=== PATIENT | male | born 1980 | race Caucasian/White ===

== ENCOUNTER 2016-11-11 23:56 | Emergency (ER) | payer SELFPAY ==
[~2016-11-11] VITALS: Ht 167.6 cm; Wt 68.8 kg
[~2016-11-11 23:56] MED LIST: PERM5CRE5 TOP
[2016-11-12 00:08] VITALS: TEMP 36.5; Ht 167.6 cm; Wt 68.8 kg
[2016-11-12] MEDS ORDERED: SODIUM CHLORIDE 0.9% 1000ML 1,000 ML IV STA (00:31)
--- NOTE | 2016-11-12 00:47 | EMERGENCY ROOM VISIT NOTE ---
History Report prepared by Kalyn: Markus Benitez Under the Supervision of: Dr. Ben Saucedo M.D. First contact with patient: 00:26 Chief Complaint: FACIAL PAIN/INJURY Stated Complaint: SWOLLEN GUMS ALL AROUND MOUTH UP TO LT EAR History of Present Illness The patient is a 36 year old male who presents to the Emergency Room with complaints of worsening left face pain for the past 3 days. The patient states that he has been having swelling, and the pain has been radiating to his tongue , ear, and throat. The patient states that he has a tooth with a hole in it, and this is where the pain is centralized. The patient denies any fevers, kidney problems, drug use, or leg swelling. The patient states that he has taken ibuprofen. Source of History: patient Onset: three days ago Position: other (left face) Quality: other (swelling) Timing: worsening Associated Symptoms: No fevers Review of Systems See HPI for pertinent positives & negatives. A total of 10 systems reviewed and were otherwise negative. Past Medical & Surgical Medical Problems: (1) Abdominal pain (2) Abdominal pain (3) Abdominal pain (4) Constipation (5) Elevated LFTs (6) Elevated LFTs (7) Gilbert syndrome Family History Patient reports no known family medical history. Social History Smoking Status: Never Smoker Alcohol Use: none Marital Status: in relationship Housing Status: lives with significant other Occupation Status: employed Current/Historical Medications Scheduled Amoxicillin & Pot Clavulanate (Augmentin 875-125 mg), 875 MG PO BID Allergies Coded Allergies: No Known Allergies (Unverified , 11/12/16) Physical Exam Vital Signs Date Time Temp Pulse Resp B/P Pulse Ox O2 Delivery O2 Flow Rate FiO2 11/12/16 02:54 94 18 122/87 97 11/12/16 01:33 91 28 117/77 100 Room Air 11/12/16 00:08 36.5 128 20 115/76 99 Room Air Physical Exam GENERAL: Patient is well appearing and in moderate distress. HEENT: Modest swelling left lateral anterior jaw with no significant swelling submental though there is some mild tenderness. No crepitus. Carious teeth. TTP over left lower gumline. No abscess appreciated by exam. No acute trauma, normocephalic atraumatic, mucous membranes moist, no nasal congestion, no scleral icterus. NECK: Lymphadenopathy anterior bilaterally. No stridor, no meningismus, trachea is midline. LUNGS: No dyspnea. Clear to auscultation and equal bilaterally. No wheeze, no rhonchi. HEART: Regular rate and rhythm. No murmurs, rubs, gallops appreciated. ABDOMEN: Soft, nontender, bowel sounds positive, no masses appreciated, no peritonitis. BACK: No midline tenderness, no CVA tenderness EXTREMITIES: Normal motion all extremities, no cyanosis, no edema. NEUROLOGIC: Alert and oriented, no acute motor or sensory deficits, no focal weakness, cranial nerves grossly intact. SKIN: No rash, no jaundice, no diaphoresis. Medical Decision & Procedures ER Provider Diagnostic Interpretation: Radiology results and stated below per my review and radiologist interpretation: CT FACIAL: Soft tissue swelling overlying the left aspect of mandible. No evidence of abscess. Dental caries left mandibular first bicuspid, second bicuspid, and first molar, but no periapical lucency. Streak artifact from dental fillings slightly limits evaluation. Prominent, subcentimeter in short axis, left submandibular lymph nodes, likely reactive. No significantly enlarged lymph nodes. Impacted bilateral third mandibular molars. Paranasal sinuses and mastoid air cells are clear. Laboratory Results 11/12/16 00:50 Red Blood Count 4.38, Mean Corpuscular Volume 93.8, Mean Corpuscular Hemoglobin 32.0, Mean Corpuscular Hemoglobin Concent 34.1, Mean Platelet Volume 8.8, Neutrophils (%) (Auto) 48.9, Lymphocytes (%) (Auto) 31.4, Monocytes (%) (Auto) 17.7, Eosinophils (%) (Auto) 1.5, Basophils (%) (Auto) 0.3, Neutrophils # (Auto ) 3.21, Lymphocytes # (Auto) 2.06, Monocytes # (Auto) 1.16, Eosinophils # (Auto ) 0.10, Basophils # (Auto) 0.02 11/12/16 00:50 Test 11/12/16 00:50 11/12/16 00:57 White Blood Count 6.56 K/uL (4.8-10.8) Red Blood Count 4.38 M/uL (4.7-6.1) Hemoglobin 14.0 g/dL (14.0-18.0) Hematocrit 41.1 % (42-52) Mean Corpuscular Volume 93.8 fL (80-100) Mean Corpuscular Hemoglobin 32.0 pg (25-34) Mean Corpuscular Hemoglobin Concent 34.1 g/dl (32-36) Platelet Count 173 K/uL (130-400) Mean Platelet Volume 8.8 fL (7.4-10.4) Neutrophils (%) (Auto) 48.9 % Lymphocytes (%) (Auto) 31.4 % Monocytes (%) (Auto) 17.7 % Eosinophils (%) (Auto) 1.5 % Basophils (%) (Auto) 0.3 % Neutrophils # (Auto) 3.21 K/uL (1.4-6.5) Lymphocytes # (Auto) 2.06 K/uL (1.2-3.4) Monocytes # (Auto) 1.16 K/uL (0.11-0.59) Eosinophils # (Auto) 0.10 K/uL (0-0.5) Basophils # (Auto) 0.02 K/uL (0-0.2) RDW Standard Deviation 46.9 fL (36.4-46.3) RDW Coefficient of Variation 13.6 % (11.5-14.5) Immature Granulocyte % (Auto) 0.2 % Immature Granulocyte # (Auto) 0.01 K/uL (0.00-0.02) Est Creatinine Clear Calc Drug Dose 91.2 ml/min Estimated GFR () 110.9 Estimated GFR (Non- 95.7 BUN/Creatinine Ratio 10.7 (10-20) Calcium Level 9.6 mg/dl (8.5-10.1) C-Reactive Protein 0.31 mg/dl (0-0.29) Bedside Hemoglobin 14.6 g/dl (14.0-18.0) Bedside Hematocrit 43 % (42-52) Bedside Sodium 138 mEq/L (135-144) Bedside Potassium 4.5 mEq/L (3.3-5.0) Bedside Chloride 98 mEq/L (101-112) Bedside Total CO2 28 mEq/l (24-31) Anion Gap 18.0 mmol/L (16-25) Bedside Blood Urea Nitrogen 10 mg/dl (7-18) Bedside Creatinine 0.9 mg/dl (0.6-1.3) Bedside Glucose (other) 84 mg/dl (70-99) Bedside Ionized Calcium (Lillian) 1.25 mmol/l (1.12-1.32) Laboratory results as reviewed by me. Medications Administered Medications (Trade) Dose Ordered Sig/Stephanie Route Start Time Stop Time Status Last Admin Dose Admin Sodium Chloride (Nss 1000ml) 1,000 ml @ 999 mls/hr Q1H1M STAT IV 11/12/16 00:31 11/12/16 01:31 DC 11/12/16 00:50 999 MLS/HR Hydromorphone HCl 1 mg 1 mg NOW STAT IV 11/12/16 01:34 11/12/16 01:35 DC 11/12/16 01:39 1 MG Clindamycin Phosphate/Dextrose (Cleocin Iv/ Dextrose Add-Rohwer 50ML) 54 ml @ 100 mls/hr ONE ONCE IV 11/12/16 02:15 11/12/16 02:47 DC 11/12/16 02:25 100 MLS/HR Hydromorphone HCl (Dilaudid Inj) 1 mg NOW STAT IV 11/12/16 02:12 11/12/16 02:13 DC 11/12/16 02:25 1 MG Amoxicillin/ Clavulanate Potassium (Augmentin Tab) 875 mg ONE ONCE PO 11/12/16 02:45 11/12/16 02:46 DC 11/12/16 02:51 875 MG Oxycodone HCl (Roxicodone Immediate Rel 5MG Home Pack) 1 homepack UD ONCE PO 11/12/16 02:45 11/12/16 02:46 DC 11/12/16 02:51 1 HOMEPACK ED Course 0026: The patient was evaluated in room C1. A complete history and physical exam was performed. 0031: Sodium Chloride 1000 ml @ 999 mls/hr 0133: I reevaluated the patient, and he was still having some pain. 0134: Dilaudid Inj 1mg IV 0212: Dilaudid Inj 1mg IV 0215: Clindamycin Phosphate 600mg/ Dextrose 54 ml @ 100mls/hr IV 0242: Reevaluated the patient. Discussed results and discharge instructions: He verbalized understanding and agreement. The patient is ready for discharge. 0245: Oxycodone HCl 1 Homepack PO, Augmentin Tab 875mg PO Medical Decision Differential: Cellulitis, Suha-apical abscess, Santa, amongst other pathologies entertained. 36 yr old male arrives with complaints of left facial swelling and jaw pain. Complaining of pain under jaw though there is no swelling nor crepitus, thus CT done. Empiric clinda ordered while awaiting CT. CT without evidence santa nor abscess. WBC OK, crp essentially normal, and no fever. No indication for admission and airway is clearly patent. Stressed importance of dentistry/omfs follow up. Limited narc to go home with. Augmentin for treatment of this. Discussed symptoms requiring return with patient and person with him. Impression Primary Impression: Facial cellulitis Additional Impression: Dental caries Scribe Attestation The scribe's documentation has been prepared under my direction and personally reviewed by me in its entirety. I confirm that the note above accurately reflects all work, treatment, procedures, and medical decision making performed by me. Departure Information Dispostion Home / Self-Care Prescriptions Amoxicillin & Pot Clavulanate (Augmentin 875-125 mg) 1 Tab Tab 875 MG PO BID for 10 Days, #20 TAB Prov: Ben Saucedo M.D. 11/12/16 Referrals Que Zapien, MARCK, , FACS Forms HOME CARE DOCUMENTATION FORM, IMPORTANT VISIT INFORMATION Patient Instructions ED Cellulitis Facial, My [facility] Additional Instructions It is very important that you follow up with a dentist or Oral Surgeon. Return immediately if fevers, worsening swelling, inability to swallow, or other concerns. You have received a narcotic pain medication. These medications may cause drowsiness and should not be used with other sedative medications. Do not drive , drink alcohol, perform dangerous activities, nor make important decisions after taking these medications. MCC use or inappropriate use may lead to addiction. Problem Qualifiers
[2016-11-12 00:58] LABS: BASO % 0.3 %; BASO ABS # 0.02 K/uL (0-0.2); COMPLETE YES; EOS % 1.5 %; HEMATOCRIT 41.1 % (42-52); IG% 0.2 %; LYMPH % 31.4 %; LYMPH ABS # 2.06 K/uL (1.2-3.4); MEAN CELL VOLUME 93.8 fL (80-100); MEAN CORPUSCULAR HGB CONC 34.1 g/dl (32-36); MEAN PLATELET VOLUME 8.8 fL (7.4-10.4); MONO % 17.7 %; NEUT % 48.9 %; PLATELET COUNT 173 K/uL (130-400); RED BLOOD COUNT 4.38 M/uL (4.7-6.1); WHITE BLOOD COUNT 6.56 K/uL (4.8-10.8)
[2016-11-12 01:10] LABS: ISTAT CREATININE 0.9 mg/dl (0.6-1.3); ISTAT HEMOGLOBIN 14.6 g/dl (14.0-18.0); ISTAT IONIZED CALCIUM 1.25 mmol/l (1.12-1.32)
[2016-11-12 01:22] LABS: BUN/CREATININE RATIO 10.7 (10-20); C-REACTIVE PROTEIN 0.31 mg/dl (0-0.29); CALCIUM 9.6 mg/dl (8.5-10.1); POTASSIUM 4.4 mmol/L (3.5-5.1)
[2016-11-12] MEDS ORDERED: OPTIRAY 320 IV PRN (01:30)
[2016-11-12] MEDS ORDERED: HYDROmorphone INJ 1 MG/ML SYR IV STA ×2 (01:34→02:12)
[2016-11-12] MEDS ORDERED: CLINDAMYCIN IV 600 MG in DEXTROSE 5% ADD-VANTAGE 50ML 50 ML IV ONE (02:15)
[2016-11-12] MEDS ORDERED: AMOX875T PO (02:32)
[2016-11-12] MEDS ORDERED: OXYCODONE IR HOME PACK PO ONE (02:45)
[2016-11-12] MEDS ORDERED: AMOXICILLIN/CLAVULANATE TAB 875 MG TAB PO ONE (02:45)
[2016-11-12 02:54] VITALS: BP 122/87; PULSE 94; O2SAT 97
--- NOTE | 2016-11-12 07:26 | DIAGNOSTIC IMAGING REPORT ---
MAXILLOFACIAL CT CT DOSE: 142.08 mGy.cm HISTORY: left mandibular swelling going under jaw TECHNIQUE: Multiaxial CT images of the maxillofacial region were performed and reformatted in the coronal plane following the use of contrast. COMPARISON: None. FINDINGS: The visualized brain parenchyma and orbits are unremarkable. Left mandibular soft tissue swelling. Dental artifact results in suboptimal evaluation. However, there are no definite loculated fluid collections to suggest an abscess at this time. A few prominent left-sided submandibular lymph nodes are likely reactive. The submandibular and parotid glands are symmetric. Prevertebral soft tissues and the epiglottis are normal in thickness. The paranasal sinuses and mastoid air cells are clear. There is a 5 mm periapical lucency at ADA 21. Multiple dental caries throughout the teeth. IMPRESSION: 1. Left mandibular soft tissue swelling. No abscess. 2. Multiple dental caries throughout the teeth. There is also a 5 mm periapical lucency at ADA 21. Electronically signed by: Samy Ryan M.D. 11/12/2016 7:24 AM Dictated Date/Time: 11/12/2016 7:20 AM
== END 2016-11-12 02:55 | disposition home or self-care (01) ==
LOC: C.EDB 23:57 → C.EDC 11-12 02:55
DX: L03.211 Cellulitis of face (principal); K02.9 Dental caries, unspecified

== ENCOUNTER 2016-11-28 22:02 | Emergency (ER) | payer OTHER ==
[~2016-11-28] VITALS: Ht 167.6 cm; Wt 69.0 kg
[2016-11-28 22:06] VITALS: BP 110/70; PULSE 99; TEMP 36.9; O2SAT 99; Ht 167.6 cm; Wt 69.0 kg
[2016-11-28] MEDS ORDERED: AMOXICIL/CLAVU 875MG HOME PACK PO ONE (23:00)
[2016-11-28] MEDS ORDERED: MELA1CAP PO (23:00)
[2016-11-28] MEDS ORDERED: VALE500C2 PO (23:00)
[2016-11-28] MEDS ORDERED: IBUP-1428 PO (23:00)
--- NOTE | 2016-11-29 17:52 | EMERGENCY ROOM VISIT NOTE ---
ED Visit Note First contact with patient: 22:37 CHIEF COMPLAINT: Toothache HISTORY OF PRESENT ILLNESS: This 36-year-old male patient presented to the emergency department with a progressive toothache for past 2-3 days. The patient believes it is coming from a right lower tooth. The pain is now steady and severe and radiates to the face. The patient does not have a dentist appointment set up. They rate their pain a 10/10 and the ibuprofen and Tylenol they have been taking has not relieved the pain. Denies facial swelling or fever. The patient denies any discharge from the mouth. REVIEW OF SYSTEMS: A 6 system review of systems was completed with positives and pertinent negatives listed in the HPI. ALLERGIES: NKDA MEDICATIONS: No chronic medications PMH: Otherwise healthy SOCIAL HISTORY: Lives locally PHYSICAL EXAM: Vitals are noted on the nurse's note and reviewed by myself. Vital signs stable. GENERAL: White male, in no acute distress, nondiaphoretic, well-developed well- nourished. Mouth: The right lower 1st molar tooth is very carious and the gum is swollen and tender around it, without any discharge or signs of an abscess. The remainder of the pharynx and tonsils are without erythema, edema, or exudate. The airway is patent. There is no facial swelling, cervical or submandibular lymphadenopathy. The patient appears uncomfortable and in pain. The patient has overall poor dental hygiene. EARS: External auditory canals clear, tympanic membranes pearly philip without erythema or effusion bilaterally. HEART: Regular rate and rhythm without murmur gallop or rub LUNG: Clear to auscultation bilateral ED COURSE: Physical exam and history were performed. Nursing notes and EMR were reviewed. The patient has reported right-sided dental pain. He does not have airway compromise or obvious signs of abscess. Review of EMR shows the patient was here a few weeks ago with similar complaints. Evidently the patient did not pick remover his prescription for antibiotics from that visit. The patient has been seen previously for dental pain. He'll be instructed to use [id number] analgesics. I will give him a home pack of Augmentin. He does have an active prescription at the pharmacy that he is to pick remover and begin taking. The patient must follow with a dentist for definitive care. He was otherwise invited back to the ER with any new, worsening, or concerning symptoms. Problem List Medical Problems: (1) Abdominal pain Status: Resolved (2) Abdominal pain Status: Resolved (3) Abdominal pain Status: Resolved (4) Constipation Status: Resolved (5) Elevated LFTs Status: Resolved (6) Elevated LFTs Status: Resolved (7) Gilbert syndrome Status: Chronic Current/Historical Medications Scheduled PRN Ibuprofen (Motrin), 800-2,400 MG PO BID PRN for Pain Melatonin (Melatonin), 1 CAP PO HS PRN for Sleep Valerian (Valeriana Officinali (Valerian Root), 1 CAP PO HS PRN for Sleep Allergies Coded Allergies: No Known Allergies (Unverified , 11/28/16) Vital Signs Date Time Temp Pulse Resp B/P Pulse Ox O2 Delivery O2 Flow Rate FiO2 11/28/16 22:06 36.9 99 18 110/70 99 Room Air Medications Administered Medications (Trade) Dose Ordered Sig/Stephanie Route Start Time Stop Time Status Last Admin Dose Admin Amoxicillin/ Clavulanate Potassium (Augmentin 875MG Home Pack) 1 homepack UD ONCE PO 11/28/16 23:00 11/28/16 23:01 DC 11/28/16 22:57 1 HOMEPACK Departure Information Impression Primary Impression: Pain, dental Dispostion Home / Self-Care Condition GOOD Forms HOME CARE DOCUMENTATION FORM, IMPORTANT VISIT INFORMATION Patient Instructions My [facility] Additional Instructions You were seen and evaluated today on an emergency basis only. This is not a substitute for, or an effort to provide, complete comprehensive medical care. It is not possible to recognize and treat all injuries or illnesses in a single emergency department visit. For this reason it is recommended that you followup with a dentist as soon as possible for definitive care. Begin your antibiotics as previously prescribed You are welcome to return to the emergency department anytime with new, worsening, or concerning symptoms.
== END 2016-11-28 23:01 | disposition home or self-care (01) ==
LOC: C.EDB 22:02 → C.EDA 23:01
DX: K08.89 Other specified disorders of teeth and supporting structures (principal); E80.4 Gilbert syndrome

== ENCOUNTER 2016-12-04 19:20 | Emergency (ER) | payer OTHER ==
[~2016-12-04] VITALS: Ht 165.1 cm; Wt 70.0 kg
[~2016-12-04 19:20] MED LIST changes: +IBUP-1428 PO; +MELA1CAP PO; -PERM5CRE5 TOP; +VALE500C2 PO
[2016-12-04 19:35] VITALS: TEMP 36.9; Ht 165.1 cm; Wt 70.0 kg
[2016-12-04 20:26] LABS: BASO % 0.4 %; BASO ABS # 0.03 K/uL (0-0.2); COMPLETE YES; EOS % 0.7 %; HEMATOCRIT 40.8 % (42-52); IG% 0.1 %; LYMPH % 47.6 %; MEAN CELL VOLUME 93.2 fL (80-100); MEAN CORPUSCULAR HEMOGLOBIN 31.3 pg (25-34); MEAN CORPUSCULAR HGB CONC 33.6 g/dl (32-36); MEAN PLATELET VOLUME 9.2 fL (7.4-10.4); MONO % 12.2 %; PLATELET COUNT 229 K/uL (130-400); RED BLOOD COUNT 4.38 M/uL (4.7-6.1); WHITE BLOOD COUNT 7.14 K/uL (4.8-10.8)
[2016-12-04 20:44] LABS: BLOOD UREA NITROGEN 19 mg/dl (7-18); BUN/CREATININE RATIO 11.9 (10-20); CARBON DIOXIDE 21 mmol/L (21-32); CHLORIDE 102 mmol/L (98-107); GLUCOSE 139 mg/dl (70-99); POTASSIUM 3.7 mmol/L (3.5-5.1); SODIUM 139 mmol/L (136-145)
[2016-12-04] MEDS ORDERED: SODIUM CHLORIDE 0.9% 1000ML 1,000 ML IV STA (21:27)
[2016-12-04 21:58] LABS: CALCIUM 8.7 mg/dl (8.5-10.1)
[2016-12-04 23:23] VITALS: BP 114/66; PULSE 80; O2SAT 96
--- NOTE | 2016-12-05 01:58 | EMERGENCY ROOM VISIT NOTE ---
History Report prepared by Kalyn: Angeles Salazar Under the Supervision of: Dr. Michlee Merino M.D. First contact with patient: 19:59 Chief Complaint: OVERDOSE (INTENTIONAL) Stated Complaint: OVERDOSE History of Present Illness The patient is a 36 year old male who presents to the Emergency Room with complaints of an episode of a drug overdose occurring [employer]. The patient injected heroin with fentanyl sometime between 2:30 and 3:30 this afternoon. He thinks that it was mostly all fentanyl because it was whiter than his typical heroin. The patient states that he uses 2-3 bags of heroin a week on average. Someone saw the patient passed out in his house and called police. The patient was administered 2 mg IM of Narcan by the police and 2 mg IV of Narcan en route to the ED by EMS. He states that he is feeling okay now. He denies being suicidal and admits that he was uses drugs recreationally. He denies any recent illness or any other complaints. He declines drug rehabilitation. 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 A total of 10 systems reviewed and were otherwise negative. Past Medical & Surgical Medical Problems: (1) Abdominal pain (2) Abdominal pain (3) Abdominal pain (4) Constipation (5) Elevated LFTs (6) Elevated LFTs (7) Gilbert syndrome Family History Patient reports no known family medical history. Social History Smoking Status: Current Every Day Smoker Alcohol Use: none Drug Use: heroin Marital Status: in relationship Housing Status: lives with significant other Occupation Status: employed Current/Historical Medications Scheduled PRN Melatonin (Melatonin), 1 CAP PO HS PRN for Sleep Valerian (Valeriana Officinali (Valerian Root), 1 CAP PO HS PRN for Sleep Allergies Coded Allergies: No Known Allergies (Unverified , 12/04/16) Physical Exam Vital Signs Date Time Temp Pulse Resp B/P (MAP) Pulse Ox O2 Delivery O2 Flow Rate FiO2 12/04/16 23:23 80 19 114/66 96 12/04/16 22:01 115/71 12/04/16 21:50 87 20 99 12/04/16 21:31 108/70 12/04/16 21:20 100 31 98 12/04/16 21:01 108/70 12/04/16 20:50 83 12 12/04/16 20:44 99 18 102/61 100 Room Air 12/04/16 20:32 102/61 12/04/16 20:20 85 15 97 12/04/16 20:02 120/103 12/04/16 19:50 91 22 95 12/04/16 19:35 36.9 78 16 115/86 94 Room Air 12/04/16 19:31 110/80 12/04/16 19:31 74 12/04/16 19:27 115/86 Physical Exam Constitutional: Vital signs reviewed. Eyes: Pupils are equal round reactive to light. Conjunctiva are noninjected. ENT: Pharynx is clear without erythema or exudate. Mucous membranes are moist. Neck supple without meningeal signs. Respiratory: Clear to auscultation bilaterally. Breath sounds are equal bilaterally. Cardiovascular: Regular rate and rhythm. No rubs or gallops. GI: Soft, nondistended and nontender. Bowel sounds are present. Musculoskeletal: No peripheral edema. No lower extremity tenderness. Integumentary: No cyanosis. Injection site right antecubital fossa without signs of infection. Neurological: The patient is awake and alert. No focal deficits. Psychiatric: Normal affect. Medical Decision & Procedures Laboratory Results 12/04/16 19:02 Red Blood Count 4.38, Mean Corpuscular Volume 93.2, Mean Corpuscular Hemoglobin 31.3, Mean Corpuscular Hemoglobin Concent 33.6, Mean Platelet Volume 9.2, Neutrophils (%) (Auto) 39.0, Lymphocytes (%) (Auto) 47.6, Monocytes (%) (Auto) 12.2, Eosinophils (%) (Auto) 0.7, Basophils (%) (Auto) 0.4, Neutrophils # (Auto ) 2.78, Lymphocytes # (Auto) 3.40, Monocytes # (Auto) 0.87, Eosinophils # (Auto ) 0.05, Basophils # (Auto) 0.03 12/04/16 19:02 Test 12/04/16 19:02 12/04/16 21:23 White Blood Count 7.14 K/uL (4.8-10.8) Red Blood Count 4.38 M/uL (4.7-6.1) Hemoglobin 13.7 g/dL (14.0-18.0) Hematocrit 40.8 % (42-52) Mean Corpuscular Volume 93.2 fL (80-100) Mean Corpuscular Hemoglobin 31.3 pg (25-34) Mean Corpuscular Hemoglobin Concent 33.6 g/dl (32-36) Platelet Count 229 K/uL (130-400) Mean Platelet Volume 9.2 fL (7.4-10.4) Neutrophils (%) (Auto) 39.0 % Lymphocytes (%) (Auto) 47.6 % Monocytes (%) (Auto) 12.2 % Eosinophils (%) (Auto) 0.7 % Basophils (%) (Auto) 0.4 % Neutrophils # (Auto) 2.78 K/uL (1.4-6.5) Lymphocytes # (Auto) 3.40 K/uL (1.2-3.4) Monocytes # (Auto) 0.87 K/uL (0.11-0.59) Eosinophils # (Auto) 0.05 K/uL (0-0.5) Basophils # (Auto) 0.03 K/uL (0-0.2) RDW Standard Deviation 46.7 fL (36.4-46.3) RDW Coefficient of Variation 13.7 % (11.5-14.5) Immature Granulocyte % (Auto) 0.1 % Immature Granulocyte # (Auto) 0.01 K/uL (0.00-0.02) Anion Gap 16.0 mmol/L (3-11) Est Creatinine Clear Calc Drug Dose 55.0 ml/min Estimated GFR () 62.9 Estimated GFR (Non- 54.2 BUN/Creatinine Ratio 11.9 (10-20) Calcium Level 8.7 mg/dl (8.5-10.1) Troponin I < 0.015 ng/ml (0-0.045) Bedside Glucose 89 mg/dl (70-99) Laboratory results as reviewed by me. Medications Administered Medications (Trade) Dose Ordered Sig/Stephanie Route Start Time Stop Time Status Last Admin Dose Admin Sodium Chloride 1,000 ml @ 999 mls/hr Q1H1M STAT IV 12/04/16 21:27 12/04/16 22:27 DC 12/04/16 21:27 999 MLS/HR ECG Indication: toxicologic Rate (beats per minute): 82 Rhythm: normal sinus Findings: no acute ischemic change, no ectopy ED Course 1958: The patient was evaluated in room A9B. A complete history and physical exam was performed. 2126: NSS 1000 ml @ 999 mls/hr IV 2248: I reassessed the patient and he feels a lot better. He is awake and alert. I discussed his elevated creatinine with him and recommended that he get it checked. 2316: I reassessed the patient at this time. He is feeling better and resting comfortably. I discussed the results and treatment plan with the patient. I answered all pertaining questions that he had. He expressed understanding and verbalized agreement. The patient will be discharged home. Medical Decision This is a 36-year-old male who presents status post opiate overdose. I did perform a limited focused review of portions of the patient's old chart on the electronic medical record. The patient was seen here twice last month with dental pain and noted to not have picked up his prescription for antibiotics. Medication Reconciliation: I attest that I have personally reviewed the patient' s current medication list. Blood Pressure Screening: Patient was found to have normal blood pressure on screening and does not require follow-up. I did evaluate the patient as noted above. The patient admits to opiate abuse and thinks that he got fentanyl instead of heroin today which caused him to overdose. He is currently awake and alert and denies any symptoms. He declines rehabilitation for drug abuse. The patient was placed on a continuous clinical research monitor. I did order and personally review the patient's 12-lead EKG as described above. I did order and review the patient's blood work as noted in the electronic medical record. His creatinine is slightly elevated. I did treat him with normal saline IV. The patient was kept here for 4 hours and has no complaints. He remains alert and awake. He was advised to have his doctor repeat his creatinine. He was discharged in good condition and advised to avoid opiates. Impression Primary Impression: Opiate overdose Additional Impressions: Opiate abuse, continuous Elevated serum creatinine Scribe Attestation The scribe's documentation has been prepared under my direct and personally reviewed by me in its entirety. I confirm that the note above accurately reflects all work, treatment, procedures, and medical decision making performed by me. Departure Information Dispostion Home / Self-Care Referrals No Doctor, Assigned (PCP) Forms HOME CARE DOCUMENTATION FORM, IMPORTANT VISIT INFORMATION, WORK / SCHOOL INSTRUCTIONS Patient Instructions ED Overdose Opiate, My [facility] Additional Instructions You have been examined and treated today on an emergency basis only. This is not a substitute for, or an effort to provide, complete comprehensive medical care. It is impossible to recognize and treat all injuries or illnesses in a single emergency department visit. It is therefore important that you follow up closely with your physician. Call as soon as possible for an appointment. Have your doctor recheck your serum creatinine which was elevated today. This is a measure of your kidney function. Return for worsening symptoms or if you develop fever, vomiting, chest pain, shortness of breath or any other concerning symptoms. Problem Qualifiers Primary Impression: Opiate overdose Encounter type: initial encounter Injury intent: accidental or unintentional Qualified Codes: T40.601A - Poisoning by unspecified narcotics, accidental (unintentional), initial encounter
== END 2016-12-04 23:23 | disposition home or self-care (01) ==
LOC: EDBD 19:20 → C.EDA 19:21
DX: T40.601A Poisoning by unspecified narcotics, accidental (unintentional), initial encounter (principal); F11.120 Opioid abuse with intoxication, uncomplicated; E80.4 Gilbert syndrome; F17.210 Nicotine dependence, cigarettes, uncomplicated; R79.89 Other specified abnormal findings of blood chemistry